=== PATIENT | female | born 1975 | race African-American/Black ===

== ENCOUNTER 2020-01-24 11:47 | Outpatient (CLI) | payer OTHER, SELFPAY ==
--- NOTE | ~2020-01-24 | XR_ITS ---
EXAMINATION: XR knee LT 3V DATE: 01/24/2020 12:21 INDICATION: Left knee pain. TECHNIQUE: 3 views of left knee were obtained. COMPARISON: None. FINDINGS: Bone alignment is normal. No fracture. There is mild osteoarthritis of medial and patellofe moral compartments. No knee joint effusion. IMPRESSION: 1. Mild left knee osteoarthritis. Reviewed, dictated and finalized at location B.
--- NOTE | ~2020-01-24 | XR_ITS ---
EXAMINATION: XR knee RT 3V DATE: 01/24/2020 12:21 INDICATION: Chronic right knee pain. TECHNIQUE: 3 views of right knee were obtained. COMPARISON: None. FINDINGS: Bone alignment is normal. No fracture. There is mild osteoarthritis of medial and patellofe moral compartments. No knee joint effusion. IMPRESSION: 1. Mild right knee osteoarthritis. Reviewed, dictated and finalized at location B.
== END 2020-01-24 11:48 | disposition home or self-care (01) ==
PROVIDERS: PCP Physician Assistant; Visit Provider Physician Assistant
DX: M17.0 Bilateral primary osteoarthritis of knee (principal)
CPT/HCPCS: 73562

== ENCOUNTER 2020-02-05 16:06 | Outpatient (CLI) | payer OTHER, SELFPAY ==
--- NOTE | ~2020-02-05 | MM_ITS ---
EXAMINATION: MM screening [facility] w [facility]lyson HISTORY: Screening TECHNIQUE: Craniocaudal and mediolateral oblique 3-D tomosynthesis images were obtained and synthetic 2-D images were generated. CAD analysis was submitted and interpreted. COMPARISON: Comparison to multiple prior studies sequentially, with oldest reviewed study dated 09/09. BREAST PARENCHYMAL COMPOSITION: The breasts are heterogeneously dense, which may obscure small masses . FINDINGS: There is no evidence of suspicious mass, calcification, or architectural distortion to sugg est malignancy in either breast. There has been no suspicious interval change. IMPRESSION: 1. No mammographic evidence of malignancy. 2. Recommend routine screening mammography in one year. BI-RADS Category 1: Negative Reviewed, dictated and finalized at location A.
== END 2020-02-05 16:07 | disposition home or self-care (01) ==
LOC: ANHIMG 16:11
PROVIDERS: PCP Physician Assistant; Visit Provider Obstetrics & Gynecology
DX: Z12.31 Encounter for screening mammogram for malignant neoplasm of breast (principal)
CPT/HCPCS: 77063; 77067

== ENCOUNTER → 2020-03-14 08:15 | Outpatient (CLI) | payer OTHER, SELFPAY ==
--- NOTE | ~2020-03-14 | MR_ITS ---
EXAMINATION: MR knee LT wo con DATE: 03/14/2020 09:10 INDICATION: Internal derangement of the left knee with generalized left knee pain. TECHNIQUE: Magnetic resonance imaging (MRI) of the left knee was performed without intravenous contra st. Sequences included coronal PD-weighted FSE, coronal PD-weighted FS FSE, sagittal T2-weighted FSE , sagittal PD-weighted FS FSE and axial PD weighted fat saturated FSE. COMPARISON: Left knee radiographs dated 01/24/2020 FINDINGS: Medial compartment: Medial meniscus is normal. Partial-thickness chondral fissure without degenerative subchondral change s at the anterior weightbearing medial femoral condyle. Lateral compartment: Lateral meniscus is normal. Small region of partial-thickness chondral fissuring without degenerative subchondral changes at the posterior lateral tibial plateau. Patellofemoral compartment: Deep chondral fissure with underlying subarticular edema at the medial aspect of the lateral patellar facet. Ligaments and tendons: Anterior and posterior cruciate ligaments are normal. The medial collateral ligament and fibular chris ateral ligament complex are normal. The extensor mechanism is normal. The visualized medial and later al hamstring tendons as well as the iliotibial band are normal. Fluid: Physiologic amount of fluid in the joint space. No loose osteochondral bodies identified. Very small Hamilton's cyst. Osseous/other: Normal marrow signal. No fracture or pathologic marrow replacing process. IMPRESSION: 1. Mild tricompartmental osteoarthritis with small region of high-grade chondromalacia at the patella and small regions of moderate grade chondromalacia with partial-thickness chondral fissuring at the medial femoral condyle and lateral tibial plateau. Reviewed, dictated and finalized at location A. IMPRESSION: 1. Mild tricompartmental osteoarthritis with small region of high-grade chondro malacia at the patella and small regions of moderate grade chondromalacia with partial-thickness chondral fissuring at the medial femoral condyle and lateral tibial plateau.
== END ==
PROVIDERS: PCP Physician Assistant; Visit Provider Orthopaedic Surgery
DX: M23.92 Unspecified internal derangement of left knee (principal); M17.12 Unilateral primary osteoarthritis, left knee; M94.262 Chondromalacia, left knee
CPT/HCPCS: 73721

== ENCOUNTER → 2020-03-27 14:46 | Outpatient (CLI) | payer OTHER, SELFPAY ==
--- NOTE | ~2020-03-27 | XR_ITS ---
EXAMINATION: XR finger 4th LT min 2V DATE: 03/27/2020 15:27 INDICATION: Pain at the left fourth digit TECHNIQUE: Dorsal palmar, lateral and 2 oblique views of the left fourth digit were obtained COMPARISON: None FINDINGS: Alignment is normal. No fracture. Joint spaces are normal. No erosions to suggest an inflammatory art hritis. Soft tissues are unremarkable. IMPRESSION: 1. Negative left fourth digit radiographs. Reviewed, dictated and finalized at location B.
--- NOTE | ~2020-03-27 | XR_ITS ---
EXAMINATION: XR hand RT min 3V DATE: 03/27/2020 15:27 INDICATION: Right hand pain TECHNIQUE: Posteroanterior, oblique and lateral views of the right hand were obtained. COMPARISON: None. FINDINGS: Alignment is normal. No fracture. Joint spaces are normal. No erosions. Soft tissues are unremarkable . IMPRESSION: 1. Negative right hand radiographs. Reviewed, dictated and finalized at location B.
== END ==
PROVIDERS: PCP Physician Assistant; Visit Provider Physician Assistant
DX: M79.641 Pain in right hand (principal); M79.645 Pain in left finger(s)
CPT/HCPCS: 73130; 73140

== ENCOUNTER → 2020-04-20 13:58 | Outpatient (CLI) | payer OTHER, SELFPAY ==
--- NOTE | ~2020-04-20 | US_ITS ---
US transvaginal DATE: 04/20/2020 14:31 INDICATION: Abnormal uterine bleeding, pelvic pain TECHNIQUE: Real-time imaging via transvaginal approach COMPARISON: 04/07/2019 CT abdomen pelvis FINDINGS: The uterus measures 8.4 cm height, 3.7 cm AP and 4.0 cm transverse dimension. The central e ndometrial echo measures 8 mm. Right ovary measures 1.9 x 1.1 x 2.2 cm, with vascular flow. Left ovary measures 2.2 x 1.2 x 1.8 cm, with vascular flow. No pelvic mass or abnormal pelvic fluid collection is detected. IMPRESSION: No significant abnormality Reviewed, dictated and finalized at Location A. Reviewed, dictated and finalized at location A. 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
== END ==
PROVIDERS: Visit Provider Obstetrics & Gynecology
DX: N93.9 Abnormal uterine and vaginal bleeding, unspecified (principal)
CPT/HCPCS: 76830

== ENCOUNTER → 2020-08-26 13:56 | Outpatient (CLI) | payer OTHER, SELFPAY ==
--- NOTE | ~2020-08-26 | US_ITS ---
US pelvic complete DATE: 08/26/2020 14:19 INDICATION: Abnormal uterine bleeding for a couple of months TECHNIQUE: Real-time imaging via transabdominal and transvaginal approaches COMPARISON: 04/20/2020 transvaginal pelvic ultrasound FINDINGS: The uterus measures 8.5 cm height, 3.5 cm AP and 4.7 cm transverse dimension. The central and echo measures approximately 5.6 mm AP dimension. No ovarian mass lesion or abnormal pelvic mass lesion or abnormal pelvic fluid collection is detected . IMPRESSION: No significant abnormality Reviewed, dictated and finalized at Location A. Reviewed, dictated and finalized at location A. IMPRESSION: No significant abnormality
== END ==
PROVIDERS: Visit Provider Nurse Practitioner
DX: N93.8 Other specified abnormal uterine and vaginal bleeding (principal)
CPT/HCPCS: 76856

== ENCOUNTER → 2020-11-27 04:36 | Outpatient (CLI) | payer OTHER, SELFPAY ==
[2020-11-27 11:40] LABS: Influenza Control Positive
[2020-11-27 18:47] LABS: SARS-CoV-2 RNA PCR Negative
== END ==
PROVIDERS: PCP Physician Assistant; Visit Provider Physician Assistant
DX: R68.89 Other general symptoms and signs (principal); Z20.822 Contact with and (suspected) exposure to COVID-19
CPT/HCPCS: 87804; C9803; U0003; U0005

== ENCOUNTER → 2021-03-16 10:31 | Outpatient (CLI) | payer OTHER, SELFPAY ==
--- NOTE | ~2021-03-16 | MM_ITS ---
EXAMINATION: MM screening [facility] BI w alyson HISTORY: Screening mammogram TECHNIQUE: Craniocaudal and mediolateral oblique 3-D tomosynthesis images were obtained and synthetic 2-D images were generated. CAD analysis was submitted and interpreted. COMPARISON: 02/05/2020, 10/17/2018, 09/20/2017 BREAST PARENCHYMAL COMPOSITION: The breasts are heterogeneously dense, which may obscure small masses . FINDINGS: There is no evidence of suspicious mass, calcification, or architectural distortion to sugg est malignancy in either breast. There has been no suspicious interval change. IMPRESSION: 1. No mammographic evidence of malignancy. 2. Recommend routine screening mammography in one year. BI-RADS Category 1: Negative Reviewed, dictated and finalized at location A.
== END ==
PROVIDERS: Visit Provider Obstetrics & Gynecology
DX: Z12.31 Encounter for screening mammogram for malignant neoplasm of breast (principal)
CPT/HCPCS: 77063; 77067

== ENCOUNTER → 2021-03-25 12:01 | Outpatient (CLI) | payer OTHER, SELFPAY ==
--- NOTE | ~2021-03-25 | US_ITS ---
EXAMINATION: US transvaginal DATE: 03/25/2021 12:50 INDICATION: Pelvic and perineal pain. TECHNIQUE: Multiple transvaginal sonographic images of the pelvis were obtained. COMPARISON: None. FINDINGS: The uterus measures 7.1 x 3.8 x 4.4 cm. There is no free fluid in the pelvis. The endometrial complex measures 4 mm in thickness. There is a 9 mm calcified subserosal fibroid. The right ovary measures 1 .9 x 1.3 x 1.4 cm. The left ovary measures 2.8 x 1.8 x 2.3 cm. There is normal vascular flow in the o varies. IMPRESSION: 1. Small uterine fibroid. Reviewed, dictated and finalized at location A. IMPRESSION: 1. Small uterine fibroid.
== END ==
PROVIDERS: PCP Physician Assistant; Visit Provider Nurse Practitioner
DX: R10.2 Pelvic and perineal pain (principal); D25.9 Leiomyoma of uterus, unspecified
CPT/HCPCS: 76830

== ENCOUNTER → 2021-10-05 01:58 | Outpatient (CLI) | payer OTHER, SELFPAY ==
[2021-10-05 13:57] LABS: Influenza A QL RT-PCR Negative (Negative); Influenza B QL RT-PCR Negative (Negative); SARS-CoV-2 RNA PCR Positive
== END ==
PROVIDERS: PCP Internal Medicine; Visit Provider Physician Assistant
DX: Z20.822 Contact with and (suspected) exposure to COVID-19 (principal); R68.89 Other general symptoms and signs
CPT/HCPCS: 87502; C9803; U0003; U0005

== ENCOUNTER → 2022-03-23 11:26 | Outpatient (CLI) | payer OTHER, SELFPAY ==
--- NOTE | ~2022-03-23 | MM_ITS ---
EXAMINATION: MM screening [facility] BI w alyson HISTORY: Screening TECHNIQUE: Craniocaudal and mediolateral oblique 3-D tomosynthesis images were obtained and synthetic 2-D images were generated. CAD analysis was submitted and interpreted. COMPARISON: Comparison to multiple prior studies sequentially, with oldest reviewed study dated 09/09. BREAST PARENCHYMAL COMPOSITION: The breasts are heterogeneously dense, which may obscure small masses FINDINGS: There is no evidence of suspicious mass, calcification, or architectural distortion to sugg est malignancy in either breast. There has been no suspicious interval change. IMPRESSION: 1. No mammographic evidence of malignancy. 2. Recommend routine screening mammography in one year. BI-RADS Category 1: Negative Reviewed, dictated and finalized at location A.
== END ==
PROVIDERS: PCP Physician Assistant; Visit Provider Obstetrics & Gynecology Gynecology
DX: Z12.31 Encounter for screening mammogram for malignant neoplasm of breast (principal)
CPT/HCPCS: 77063; 77067

== ENCOUNTER 2022-03-30 14:47 | Outpatient (CLI) | payer OTHER, SELFPAY ==
--- NOTE | ~2022-03-30 | US_ITS ---
EXAMINATION: US venous doppler [facility] DATE: 03/30/2022 15:27 INDICATION: Left lower limb pain and swelling TECHNIQUE: Up scale images without and with compression and Doppler images of the left lower extrem ity veins were obtained. COMPARISON: None FINDINGS: The left common femoral vein, profunda femoral vein, femoral vein, popliteal vein, peroneal trunk, posterior tibial veins, and greater saphenous vein are patent. IMPRESSION: 1. Patent left lower extremity veins. No evidence of deep venous thrombosis. Reviewed, dictated and finalized at location A.
== END 2022-03-30 14:48 | disposition home or self-care (01) ==
LOC: ANHIMG 14:54
PROVIDERS: PCP Physician Assistant; Visit Provider Podiatrist Foot & Ankle Surgery
DX: M79.89 Other specified soft tissue disorders (principal)
CPT/HCPCS: 93971

== ENCOUNTER 2022-04-29 11:28 | Outpatient (CLI) | payer OTHER, SELFPAY ==
[2022-04-29 11:47] LABS: Appearance Urine Clear (Clear); Bilirubin Urine Negative (Negative); Blood Urine Negative (Negative); Color Urine Yellow (Yellow); Glucose Urine UA Negative (Negative); Ketones Urine Negative (Negative); Leukocyte Esterase Ur Trace LEU/UL (NEGATIVE); Nitrate Urine Negative (Negative); Protein Urine Negative (Negative); Urobilinogen Urine 0.2 mg/dL (<2.0); pH Urine 6.5 (5.0-9.0)
[2022-04-29 11:52] LABS: Add Urine Microscopic? YES; Bacteria Urine Trace /hpf; Mucus Urine Rare /lpf; RBC Urine 0-2 /hpf (0-2); Squamous Epithelial Cell Urine Occasional /hpf (Few); WBC Urine 0-3 /hpf (0-3)
== END 2022-04-29 11:29 | disposition home or self-care (01) ==
LOC: ANHLAB 11:29
PROVIDERS: PCP Physician Assistant; Visit Provider Physician Assistant
DX: R30.0 Dysuria (principal)
CPT/HCPCS: 81001; 87086

== ENCOUNTER 2022-07-18 01:23 | Day surgery (SDC) | payer OTHER, SELFPAY ==
[2022-06-30 11:42] VITALS: BMI 30.5
[2022-07-18 07:40] VITALS: BP 128/75; PULSE 87; RESP 16; TEMP 36.1; O2SAT 100; BMI 31.0
--- NOTE | 2022-07-18 08:13 | WPDANESEPPF ---
Anes - Initial Pre Proc Eval Procedure: Operation Date: 07/18/22 09:00 Proposed Procedures p Screening Colonoscopy - Abel Lundy MD Date/Time: 07/18/22 08:13 Surgeon: Abel Lundy MD Pre Op Diagnosis: neoplasm screening Patient Data Age: 47 Gender: F Height: 1.6 m Weight: 79.4 kg Last Vital Signs Temp 36.1 C L 07/18/22 07:40 Pulse 87 07/18/22 07:40 Resp 16 07/18/22 07:40 BP 128/75 07/18/22 07:40 Pulse Ox 100 07/18/22 07:40 O2 Del Method Room Air 07/18/22 07:40 Allergies Allergy/AdvReac Type Severity Reaction Status Date / Time No Known Allergies Allergy Verified 07/18/22 07:51 Home Medications Medication Instructions Recorded Confirmed Type cholecalciferol (vitamin D3) 125 5,000 unit PO WEEKLY 04/15/19 07/18/22 History mcg (5,000 unit) capsule hhtuqtmm-kbl-xdls-FA-Ca carb-vit K 1 tablet PO DAILY 04/15/19 07/18/22 History 18 mg iron-400 mcg-500 mg tablet (One-A-Day Womens Formula) norgestimate 0.25 mg-ethinyl 1 tablet PO DAILY 03/17/21 07/18/22 History estradiol 35 mcg tablet (Aby) diclofenac sodium 1 % topical gel 4 g topical QID 06/30/22 07/18/22 History spironolactone 100 mg tablet 100 mg PO BID 06/30/22 07/18/22 History Patient hx anesthesia problems: none Family hx anesthesia problems: none Results Review: All pre-operative results and documents have been reviewed as part of the pre-operative evaluation. [facility] Past Medical History Medical History Clostridium difficile colitis (04/07/19) Endometriosis History of vitamin D deficiency Multiple allergies Osteoarthritis Osteoarthritis of left knee Trochanteric bursitis of both hips Surgical History Surgical History History of hysteroscopy History of laparoscopy History of toe surgery Family History Family History Sibling Patient's brother is in good health Mother Hypertension Family history of arthritis Other Cerebrovascular accident Social History Social History Smoking status: Never smoker Second hand tobacco smoke exposure: No Alcohol intake: current Alcohol use details: rarely Substance use: never Substance use type: does not use Lack of Transportation: No Lack of Food: Never True Current Housing: I Have Housing Concerned About Future Housing: No Difficulty Paying Gas/Electric Bills: No Difficulty Paying for Meds: No Currently Unemployed: No Education: Associate Degree Difficulty w/ Childcare or Family Care: No Living arrangements: with family Spiritual care concerns: No Anes - Eval Final PreProcedure Day of Procedure 07/18/22 08:13 Patient weight: obese Heart: regular rate and rhythm Lungs: clear to auscultation Airway: Mallampati scale class II Neurological: alert and oriented Last oral intake: >/= 8 hours ASA classification: II Emergent: no Anesthetic plan: proceed Anesthesia type and monitoring: general GIVS and standard monitoring Results Review: All pre-operative results and documents have been reviewed as part of the pre-operative evaluation. Informed Consent: The patient's anesthetic plan and its attendant risks and benefits were discussed with the patient/family/POA. Questions were solicited and answers provided to the satisfaction of the patient/family/POA.
[2022-07-18] MEDS: LACTATED RINGERS 1,000 ML 150 ML IV CONT (08:22)
--- NOTE | 2022-07-18 08:34 | PM.HPGS ---
History of Present Illness History of Present Illness Consent: Risks, benefits, and alternatives have been discussed and questions answered. Patient agrees to proceed with procedure. Chief complaint: neoplasm screening Narrative: Rosangela Matthews is a 47 year old female here for first screening colonoscopy Review of Systems Constitutional: Constitutional: Denies headache(s) and Denies weakness Eyes: Eyes: Denies blurry vision ENT: Reports Normal hearing present, Denies headache(s) and Denies neck pain Cardiovascular: Cardiovascular: Denies chest pain and Denies dyspnea Respiratory: Respiratory: Denies dyspnea Gastrointestinal: Gastrointestinal: Reports no additional gastrointestinal complaints Genitourinary: Genitourinary: Denies dysuria Musculoskeletal: Musculoskeletal: Denies neck pain Integumentary/Breasts: Skin/Breast: Denies dry skin Neurologic: Reports Normal hearing present, Denies headache(s) and Denies weakness Psychiatric: Psychiatric: Denies anxiety Endocrine: Endocrine: Denies change in body appearance Hematologic/Lymphatic: Hematologic/Lymphatic: Denies easy bleeding Allergic/Immunologic: Allergic/Immunologic: Denies urticaria PMF Past Medical History Medical History (Updated 07/18/22 @ 08:35 by Abel Lundy MD) Clostridium difficile colitis (04/07/19) Colon cancer screening Endometriosis History of vitamin D deficiency Multiple allergies Osteoarthritis Osteoarthritis of left knee Trochanteric bursitis of both hips Surgical History Surgical History History of hysteroscopy History of laparoscopy History of toe surgery Family History Family History Sibling Patient's brother is in good health Mother Hypertension Family history of arthritis Other Cerebrovascular accident Social History Social History Smoking status: Never smoker Second hand tobacco smoke exposure: No Alcohol intake: current Alcohol use details: rarely Substance use: never Substance use type: does not use Lack of Transportation: No Lack of Food: Never True Current Housing: I Have Housing Concerned About Future Housing: No Difficulty Paying Gas/Electric Bills: No Difficulty Paying for Meds: No Currently Unemployed: No Education: Associate Degree Difficulty w/ Childcare or Family Care: No Living arrangements: with family Spiritual care concerns: No Meds Home Medications and Allergies Home Medications Medication Instructions Recorded Confirmed Type cholecalciferol (vitamin D3) 125 5,000 unit PO WEEKLY 04/15/19 07/18/22 History mcg (5,000 unit) capsule gvqwutja-wot-fovw-FA-Ca carb-vit K 1 tablet PO DAILY 04/15/19 07/18/22 History 18 mg iron-400 mcg-500 mg tablet (One-A-Day Womens Formula) norgestimate 0.25 mg-ethinyl 1 tablet PO DAILY 03/17/21 07/18/22 History estradiol 35 mcg tablet (Aby) diclofenac sodium 1 % topical gel 4 g topical QID 06/30/22 07/18/22 History spironolactone 100 mg tablet 100 mg PO BID 06/30/22 07/18/22 History Allergies Allergy/AdvReac Type Severity Reaction Status Date / Time No Known Allergies Allergy Verified 07/18/22 07:51 Vital Signs Vital Signs - 24 hr 07/18/22 07:40 Temperature 96.9 F L Pulse Rate 87 Respiratory Rate 16 Blood Pressure 128/75 Pulse Oximetry 100 Oxygen Delivery Room Air Exam Const: General: comfortable and no acute distress HENMT: Face/Nose/Sinus: Normal nares present Eyes: General: appearance normal, both eyes and all related structures Neck: Neck: no JVD Resp: Auscultation: clear to auscultation bilaterally Cardio: Rate: regular rate Rhythm: regular rhythm GI: Inspection: non-distended GI Palp: Yes Soft to palpation Skin: General skin exam: normal color Neuro: General: gait normal
[2022-07-18 08:57] VITALS: BP 96/57; PULSE 81; RESP 16; O2SAT 99
[2022-07-18 09:07] VITALS: BP 105/54; PULSE 78; RESP 22; O2SAT 99
[2022-07-18 09:17] VITALS: BP 107/53; PULSE 74; RESP 17; O2SAT 99
== END 2022-07-18 09:30 | disposition home or self-care (01) ==
PROVIDERS: PCP Physician Assistant; Visit Provider Internal Medicine Gastroenterology
PROC: 0DJD8ZZ Inspection of Lower Intestinal Tract, Via Natural or Artificial Opening Endoscopic (ICD-10-PCS; CPT 45378; principal; 2022-07-18 09:00)
DX: Z12.11 Encounter for screening for malignant neoplasm of colon (principal); K63.5 Polyp of colon; K63.89 Other specified diseases of intestine; E66.9 Obesity, unspecified; Z68.31 Body mass index [BMI] 31.0-31.9, adult
CPT/HCPCS: 45385; 88305; J2704; J7120

== ENCOUNTER 2023-05-18 17:03 | Outpatient (CLI) | payer OTHER, SELFPAY ==
[2023-05-18 18:52] LABS: Strep Group A RT-PCR NOT DETECTED (Negative)
== END 2023-05-18 17:04 | disposition home or self-care (01) ==
LOC: ANHLAB 17:04
PROVIDERS: PCP Physician Assistant; Visit Provider Physician Assistant
DX: J02.9 Acute pharyngitis, unspecified (principal)
CPT/HCPCS: 87651; 87880

== ENCOUNTER 2023-06-07 16:48 | Outpatient (CLI) | payer OTHER, SELFPAY ==
[2023-06-07 17:18] LABS: Appearance Urine Clear (Clear); Bilirubin Urine Negative (Negative); Blood Urine Negative (Negative); Color Urine Yellow (Yellow); Glucose Urine UA Negative (Negative); Ketones Urine Negative (Negative); Leukocyte Esterase Ur Negative LEU/UL (NEGATIVE); Nitrate Urine Negative (Negative); Protein Urine Negative (Negative); Specific Grav Ur 1.014 (1.001-1.035); Urobilinogen Urine 0.2 mg/dL (<2.0)
[2023-06-07 17:21] LABS: Add Urine Microscopic? NO
== END 2023-06-07 16:49 | disposition home or self-care (01) ==
LOC: ANHLAB 16:50
PROVIDERS: PCP Physician Assistant; Visit Provider Physician Assistant
DX: R30.0 Dysuria (principal)
CPT/HCPCS: 81003; 87086; 87088

== ENCOUNTER → 2023-06-29 14:09 | Outpatient (CLI) | payer OTHER, SELFPAY ==
--- NOTE | ~2023-06-29 | MM_ITS ---
EXAMINATION: MM screening [facility] BI w alyson HISTORY: Screening TECHNIQUE: Craniocaudal and mediolateral oblique 3-D tomosynthesis images were obtained and synthetic 2-D images were generated. CAD analysis was submitted and interpreted. COMPARISON: Comparison to multiple prior studies sequentially, with oldest reviewed study dated 09/09. BREAST PARENCHYMAL COMPOSITION: The breasts are heterogeneously dense, which may obscure small masses FINDINGS: There is new focal asymmetry centrally in the right breast on CC view, posterior third. The re is also a new asymmetry laterally in the left breast posteriorly on CC view. There are no suspicio us calcifications or architectural distortion. IMPRESSION: 1. New bilateral focal asymmetries. 2. Additional mammographic views and possible breast ultrasound are recommended. BI-RADS Category 0: Incomplete: Needs additional imaging evaluation. Reviewed, dictated and finalized at location A. COVER ESTIMATOR IMPRESSION: 1. New bilateral focal asymmetries. 2. Additional mammographic views and possible breast ultrasound are recommended . BI-RADS Category 0: Incomplete: Needs additional imaging evaluation.
== END ==
PROVIDERS: PCP Obstetrics & Gynecology Gynecology; Visit Provider Obstetrics & Gynecology Gynecology
DX: Z12.31 Encounter for screening mammogram for malignant neoplasm of breast (principal); R92.8 Other abnormal and inconclusive findings on diagnostic imaging of breast
CPT/HCPCS: 77063; 77067

== ENCOUNTER → 2023-07-28 09:32 | Outpatient (CLI) | payer OTHER, SELFPAY ==
--- NOTE | ~2023-07-28 | MMUS_ITS ---
EXAMINATION: MM diagnostic [facility] BI w alyson, US breast LT limited HISTORY: Bilateral breast asymmetries on screening mammogram TECHNIQUE: Additional 3-D tomosynthesis images of the breasts were performed and synthetic 2-D images were generated. CAD analysis was submitted and interpreted. High resolution limited left breast ultr asound was performed. COMPARISON: 06/29/2023, 03/23/2022, 04/16/2021, 02/05/2020 FINDINGS: MAMMOGRAPHIC FINDINGS: There is a return to baseline fibroglandular appearance with spot compression of the breasts in the a reas questioned on screening mammogram. No suspicious mass, calcification, or architectural distortio n are identified. ULTRASOUND: Suspicious mass is identified in the area of the mammographic finding in question in the left breast. There are cysts measuring up to 6 mm at the 2:00 and 3:00 locations. IMPRESSION: 1. No mammographic or sonographic evidence of malignancy. 2. Recommend routine screening mammography in one year. BI-RADS Category 2: Benign finding(s). Reviewed, dictated and finalized at location A. INVESTIGATOR IMPRESSION: 1. No mammographic or sonographic evidence of malignancy. 2. Recommend routine screening mammography in one year. BI-RADS Category 2: Benign finding(s).
== END ==
PROVIDERS: PCP Physician Assistant; Visit Provider Obstetrics & Gynecology Gynecology
DX: R92.8 Other abnormal and inconclusive findings on diagnostic imaging of breast (principal)
CPT/HCPCS: 76642; 77062; 77066; G0279

== ENCOUNTER 2023-09-11 13:17 | Emergency (ER) | payer OTHER, SELFPAY ==
[2023-09-11 13:49] VITALS: BP 138/83; PULSE 79; RESP 16; TEMP 36.4; O2SAT 100
[2023-09-11 16:52] VITALS: BP 131/87; PULSE 82; RESP 14; O2SAT 100
[2023-09-11 17:18] LABS: Appearance Urine Clear (Clear); Bacteria Urine None Seen /hpf; Bilirubin Urine Negative (Negative); Blood Urine Negative (Negative); Color Urine Yellow (Yellow); Glucose Urine UA Negative (Negative); Ketones Urine Negative (Negative); Leukocyte Esterase Ur Trace LEU/UL (Negative); Nitrate Urine Negative (Negative); Non Pathogenic Casts 0-2; Protein Urine Negative (Negative); RBC Urine 0-2 /hpf (0-2); Specific Grav Ur 1.017 (1.001-1.035); Squamous Epithelial Cell Urine None Seen /hpf (Few); WBC Urine 0-5 /hpf (0-3); pH Urine 7.5 (5.0-9.0)
--- NOTE | 2023-09-11 17:25 | ED.GENADULT ---
HPI - General Adult General Chief complaint: Back Pain/Injury Stated complaint: left back pain for 3 days Time Seen by Provider: 09/11/23 16:55 Source: patient Mode of arrival: ambulatory Limitations: no limitations History of Present Illness HPI narrative: This is a 48 year old female who presents to the ED with chief complaint of left mid to lower back pain beginning 2-3 days ago. Patient rates pain 5-6 at 10. Denies any radiation pain. Denies any specific injury or trauma. 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 She states that she has a known kidney stone the left side but has never had troubles with this. Denies fevers, chills, nausea, vomiting, abdominal pain, troubles with urination, saddle anesthesia, bowel or bladder dysfunction. Related Data Home Medications Medication Instructions Recorded Confirmed cholecalciferol (vitamin D3) 125 5,000 unit PO WEEKLY 04/15/19 03/23/23 mcg (5,000 unit) capsule czdvrcvz-iew-ojqg-FA-Ca carb-vit K 1 tablet PO DAILY 04/15/19 03/23/23 18 mg iron-400 mcg-500 mg tablet (One-A-Day Womens Formula) norgestimate 0.25 mg-ethinyl 1 tablet PO DAILY 03/17/21 03/23/23 estradiol 35 mcg tablet (Aby) diclofenac sodium 1 % topical gel 4 g topical QID 06/30/22 03/23/23 spironolactone 100 mg tablet 100 mg PO BID 06/30/22 03/23/23 Allergies Allergy/AdvReac Type Severity Reaction Status Date / Time No Known Allergies Allergy Verified 09/11/23 13:52 Review of Systems Review of Systems: All systems as dictated in HPI [facility] Past Medical History Medical History Clostridium difficile colitis (04/07/19) Colon cancer screening Endometriosis History of vitamin D deficiency Multiple allergies Osteoarthritis Osteoarthritis of left knee Trochanteric bursitis of both hips Surgical History Surgical History History of hysteroscopy History of laparoscopy History of toe surgery Family History Family History Sibling Patient's brother is in good health Mother Hypertension Family history of arthritis Other Cerebrovascular accident Social History Social History Smoking status: Never smoker Second hand tobacco smoke exposure: No Alcohol intake: current Alcohol use details: rarely Substance use: never Substance use type: does not use Lack of Transportation: No Lack of Food: Never True Current Housing: I Have Housing Concerned About Future Housing: No Difficulty Paying Gas/Electric Bills: No Difficulty Paying for Meds: No Currently Unemployed: No Education: Associate Degree Difficulty w/ Childcare or Family Care: No Living arrangements: with family Spiritual care concerns: No Exam Narrative: GENERAL: Well-appearing, well-nourished, and in no acute distress. HEAD: Normocephalic, atraumatic. EYES: PERRLA and EOMI. ENT: Nares clear, no rhinorrhea or epistaxis. Mucous membranes moist. Oropharynx without tonsillar hypertrophy exudate or other lesions. NECK: Supple. No adenopathy or masses. CHEST: No respiratory distress. Clear to auscultation. No wheezes rales or rhonchi HEART: Regular rate and rhythm. No murmur heard. Normal peripheral pulses. ABDOMEN: Soft, nontender, nondistended, normal active bowel sounds. MSK: Mild left thoracic and lumbar paraspinal tenderness. No midline spinal tenderness. Ambulatory without difficulty. Normal range of motion. No edema. SKIN: Warm, dry, no rash. NEURO: Alert and oriented x3. No focal deficits. 5/5 strength and sensation in the upper and lower extremities. PSYCH: Normal mood and affect. Course Vital Signs Vital signs: Vital Signs Temperature 97.6 F 09/11/23 13:49 Pulse Rate 79 09/11/23 13:49 R
[2023-09-11 17:30] LABS: Add Urine Microscopic? YES
== END 2023-09-11 17:38 | disposition home or self-care (01) ==
PROVIDERS: Family Medicine; Emergency Provider Physician Assistant; PCP Physician Assistant
DX: S39.012A Strain of muscle, fascia and tendon of lower back, initial encounter (principal); E55.9 Vitamin D deficiency, unspecified; N80.9 Endometriosis, unspecified; M17.12 Unilateral primary osteoarthritis, left knee; X50.0XXA Overexertion from strenuous movement or load, initial encounter
CPT/HCPCS: 81001; 99283

== ENCOUNTER 2024-01-23 14:38 | Emergency (ER) | payer OTHER, SELFPAY ==
[2024-01-23 14:49] VITALS: BP 117/79; PULSE 114; RESP 16; TEMP 37.8; O2SAT 98
--- NOTE | 2024-01-23 14:49 | ED.GENADULT ---
HPI - General Adult General Chief complaint: Upper Respiratory Infection Stated complaint: Fever/Headache Time Seen by Provider: 01/23/24 14:49 Source: patient, RN notes reviewed and old records reviewed Mode of arrival: ambulatory Limitations: no limitations History of Present Illness HPI narrative: 49-year-old female to [facility] for complaint of fever, sore throat, chills, body aches for 1 day. Patient reports temp up to 102?. Patient has been attempting to treat at home with gqys-ief-fimvzdv medications, States that she has not taken any kfgc-izz-gmfixxx medications since last night due to fatigue. Patient states that spouse recently return from conference sick and that she caught her illness from him. Patient reports that his bowels tested negative for COVID. Patient denies that she is experiencing shortness of breath, chest pain, difficulty swallowing, ear pain, headache, dizziness, weakness, nausea, vomiting, diarrhea. Patient able to tolerate fluids by mouth. Patient febrile and tachycardic in triage. Respirations even and nonlabored. patient appears tired and uncomfortable. Patient in no acute distress. Related Data Home Medications Medication Instructions Recorded Confirmed cholecalciferol (vitamin D3) 125 5,000 unit PO WEEKLY 04/15/19 01/23/24 mcg (5,000 unit) capsule ffkzdjyb-nwh-xxlc-FA-Ca carb-vit K 1 tablet PO DAILY 04/15/19 01/23/24 18 mg iron-400 mcg-500 mg tablet (One-A-Day Womens Formula) norgestimate 0.25 mg-ethinyl 1 tablet PO DAILY 03/17/21 01/23/24 estradiol 35 mcg tablet (Aby) spironolactone 100 mg tablet 100 mg PO BID 01/23/24 01/23/24 Allergies Allergy/AdvReac Type Severity Reaction Status Date / Time No Known Allergies Allergy Verified 01/23/24 14:48 Review of Systems Review of Systems: All systems reviewed & are unremarkable except as noted in HPI and below Constitutional: Constitutional: Reports as per HPI, Reports body ache(s), Reports chills, Reports fatigue and Reports fever(s) Eyes: Eyes: Reports no additional eye complaints ENT: Reports as per HPI and Reports sore throat Cardiovascular: Cardiovascular: Reports no additional cardiovascular complaints, Denies chest pain and Denies dyspnea Respiratory: Respiratory: Reports no additional respiratory complaints, Denies cough and Denies dyspnea Musculoskeletal: Musculoskeletal: Reports no additional musculoskeletal complaints Neurologic: Reports system reviewed and no additional complaints, except as documented Psychiatric: Psychiatric: Reports no additional psychiatric complaints [facility] Past Medical History Medical History Clostridium difficile colitis (04/07/19) Colon cancer screening Endometriosis History of vitamin D deficiency Multiple allergies Osteoarthritis Osteoarthritis of left knee Trochanteric bursitis of both hips Surgical History Surgical History History of hysteroscopy History of laparoscopy History of toe surgery Family History Family History Sibling Patient's brother is in good health Mother Hypertension Family history of arthritis Other Cerebrovascular accident Social History Social History Smoking status: Never smoker Second hand tobacco smoke exposure: No Alcohol intake: current Alcohol use details: rarely Substance use: never Substance use type: does not use Lack of Transportation: No Lack of Food: Never True Current Housing: I Have Housing Concerned About Future Housing: No Difficulty Paying Gas/Electric Bills: No Difficulty Paying for Meds: No Currently Unemployed: No Education: Associate Degree Difficulty w/ Childcare or Family Care: No Living arrangements: with family Spiritual care concerns
[2024-01-23 14:50] VITALS: BP 117/79; PULSE 114; RESP 16; TEMP 37.8; O2SAT 98
[2024-01-23 19:27] LABS: EDINFLUASCREEN Negative; EDINFLUBSCREEN Negative
== END 2024-01-23 15:43 | disposition home or self-care (01) ==
PROVIDERS: Emergency Provider Nurse Practitioner Family; PCP Physician Assistant
DX: B34.9 Viral infection, unspecified (principal); Z20.822 Contact with and (suspected) exposure to COVID-19; N80.9 Endometriosis, unspecified; M17.12 Unilateral primary osteoarthritis, left knee; E55.9 Vitamin D deficiency, unspecified
CPT/HCPCS: 87426; 87804; 99213; G0463

== ENCOUNTER 2024-03-19 11:14 | Outpatient (CLI) | payer OTHER, SELFPAY ==
--- NOTE | ~2024-03-19 | XR_ITS ---
Left Knee Technique: AP, lateral, and sunrise views were obtained. Clinical History: Pain Findings: No fracture or dislocation is seen. Osseous alignment is anatomic. There is mild medial jose alejandro nt line spurring. Soft tissues are unremarkable. No joint effusion is seen. Impression: Mild degenerative spurring. Reviewed, dictated and finalized at [facility]. Impression: Mild degenerative spurring.
== END 2024-03-19 11:15 | disposition home or self-care (01) ==
PROVIDERS: PCP Nurse Practitioner; Visit Provider Orthopaedic Surgery
DX: M25.562 Pain in left knee (principal)
CPT/HCPCS: 73564

== ENCOUNTER 2024-04-23 17:10 | Emergency (ER) | payer OTHER, SELFPAY ==
[2024-04-23 17:19] VITALS: BP 122/79; PULSE 89; RESP 16; TEMP 36.5; O2SAT 99
--- NOTE | 2024-04-23 17:43 | ED_ITS ---
HPI - Female Genitourinary General Chief complaint: Urogenital-Female Stated complaint: uti symptoms Time Seen by Provider: 04/23/24 17:44 Source: patient and RN notes reviewed Mode of arrival: ambulatory Limitations: no limitations History of Present Illness HPI Narrative: 49-year-old female presents concern for dysuria, frequency, urgency, suprapubic pressure for couple days. She reports she has been taking azo my drinking cranberry juice. She denies fever, body aches, chills, sweats, nausea, vomiting, abdominal pain, back pain. She reports fatigue MD elicited complaint: UTI Related Data Home Medications Medication Instructions Recorded Confirmed cholecalciferol (vitamin D3) 125 5,000 unit PO WEEKLY 04/15/19 04/02/24 mcg (5,000 unit) capsule ijetesxr-bde-aeqx-FA-Ca carb-vit K 1 tablet PO DAILY 04/15/19 04/02/24 18 mg iron-400 mcg-500 mg tablet (One-A-Day Womens Formula) norgestimate 0.25 mg-ethinyl 1 tablet PO DAILY 03/17/21 04/02/24 estradiol 35 mcg tablet (Aby) Allergies Allergy/AdvReac Type Severity Reaction Status Date / Time No Known Allergies Allergy Verified 04/23/24 17:41 Review of Systems Review of Systems: CONSTITUTIONAL: Denies malaise, chills, sweats, or fever. CARDIOVASCULAR: Denies chest pain, palpitations, or edema. RESPIRATORY: Denies cough or dyspnea. GASTROINTESTINAL: Denies abdominal pain, nausea, vomiting, diarrhea GENITOURINARY: Reports dysuria, frequency, urgency, suprapubic pressure. Denies flank pain or hematuria. SKIN: Denies rash or itching. MUSCULOSKELETAL: Denies back pain or myalgia. All systems reviewed & are unremarkable except as noted in HPI and below PMFSH Past Medical History Medical History Clostridium difficile colitis (04/07/19) Colon cancer screening Endometriosis History of vitamin D deficiency Multiple allergies Osteoarthritis Osteoarthritis of left knee Trochanteric bursitis of both hips Surgical History Surgical History History of hysteroscopy History of laparoscopy History of toe surgery Family History Family History Sibling Patient's brother is in good health Mother Hypertension Family history of arthritis Other Cerebrovascular accident Social History Social History Smoking status: Never smoker Second hand tobacco smoke exposure: No Alcohol intake: current Alcohol use details: rarely Substance use: never Substance use type: does not use Do You Feel Safe in your Home?: Yes Lack of Transportation: No Lack of Food: Never True Current Housing: I Have Housing Concerned About Future Housing: No Difficulty Paying Gas/Electric Bills: No Difficulty Paying for Meds: No Currently Unemployed: No Education: Associate Degree Difficulty w/ Childcare or Family Care: No Living arrangements: with family Spiritual care concerns: No Comments At time of signature, agree with nursing past medical, surgical, social and family history. There is no relevant family history pertinent to the presenting complaint Exam Narrative: GENERAL: Well-appearing, well-nourished, and in no acute distress. HEAD: Normocephalic. EYES: PERRLA, conjunctivae clear. NECK: Supple. No lymphadenopathy CHEST: Clear to auscultation. No respiratory distress. HEART: Regular rate and rhythm. ABDOMEN: Soft, nontender upon palpation, nondistended, normal active bowel sounds, no palpable or pulsatile masses, no guarding. No CVA tenderness SKIN: Warm, dry, no rash. NEURO: Alert and oriented x3. PSYCH: Normal mood and affect Course Course Emergency Course: Patient is aware of diagnosis, understands and agrees to treatment plan. Ant icipatory guidance given. Patient agrees to follow-up as directed and is aware of reasons to seek care at the emergency department. Portions of this record may have been created with voice recognition software Level of Care: Express Care Visit Vital Signs Vital signs: Vital Signs Temperature 97.7 F 04/23/24 17:19 Pulse Rate 89 04/23/24 17:19 Respiratory Rate 16 04/23/24 17:19 Blood Pressure 122/79 04/23/24 17:19 Pulse Oximetry 99 04/23/24 17:19 Temperature 97.7 F 04/23/24 17:19 Pulse Rate 89 04/23/24 17:19 Respiratory Rate 16 04/23/24 17:19 Blood Pressure 122/79 04/23/24 17:19 Pulse Oximetry 99 04/23/24 17:19 Reviewed. MDM - Female Genitourinary MDM Narrative Medical decision making narrative: Exam findings and UA show no acute concerns or changes; patient is non-toxic appearing and is in no distress. Patient is appropriate for outpatient treatment and follow-up. Differential Diagnosis Differential diagnosis: Likely urinary tract infection and cystitis Critical Care Time Critical Care Time Critical Care Time: No Discharge Plan Discharge Clinical Impression: Symptoms of urinary tract infection Patient Disposition: Home, Self-Care Condition: Stable Instructions: Antibiotic Form, Urinary Tract Infection in Women (ED) Additional Instructions: We will send a urine culture to the lab; if the culture identifies an organism that the prescribed antibiotic will not treat, you will receive a phone call from an urgent care staff member and an appropriate antibiotic will be prescribed. -Your symptoms should begin to improve within a day of starting antibiotics. But you should finish all the antibiotic pills you get. Otherwise your infection might come back. -Also recommend: increase water intake. Tylenol/ibuprofen as needed for pain or fever -Follow-up with your primary care provider for urine recheck or seek ER visit if condition worsens with high fever, nausea, vomiting and severe back pain. Prescriptions: New sulfamethoxazole-trimethoprim 800-160 mg tablet 1 tablet PO Q12H 7 Days Qty: 14 0RF No Action norgestimate-ethinyl estradiol [Aby] 0.25-35 mg-mcg tablet 1 tablet PO DAILY One-A-Day Womens Formula 18 mg iron-400 mcg-500 mg tablet 1 tablet PO DAILY cholecalciferol (vitamin D3) 5,000 unit capsule 5,000 unit PO WEEKLY Rx Instructions: on Sundays Follow-up/Referrals: UNKNOWN,DOCTOR [Primary Care Provider] - Time of Disposition: 17:52
[2024-04-23 17:58] LABS: EDUAAPPEAR Clear; EDUABILI Negative (Negative); EDUABLOOD Negative (Negative); EDUACOLOR1 Yellow; EDUAGLUCOSE Negative (Negative); EDUAKETONE Negative (Negative); EDUALEUKO Negative (Negative); EDUANITRATE Negative (Negative); EDUAPROTEIN Negative (Negative); EDUASPGRAVITY 1.015; EDUAUROBILI 0.2
--- NOTE | 2024-04-24 17:55 | PC.NURSE ---
pt called reporting [facility] yesterday and did not receive her escript for bactrim ds. This RN [facility] [address] [facility]rim ds po, take 1 tablet bid for 7 days, #14 tablets, no refills.
== END 2024-04-23 17:56 | disposition home or self-care (01) ==
PROVIDERS: Emergency Provider Nurse Practitioner
DX: R30.0 Dysuria (principal); R35.0 Frequency of micturition; R39.15 Urgency of urination
CPT/HCPCS: 81003; 87086; 99213; G0463

== ENCOUNTER 2024-05-03 17:48 | Emergency (ER) | payer OTHER, SELFPAY ==
--- NOTE | 2024-05-03 17:54 | ED.SKABFB ---
HPI - Skin/Abscess/Foreign Bdy General Chief complaint: Skin/Abscess/Foreign Body Stated complaint: cyst on rt leg Time Seen by Provider: 05/03/24 17:54 Source: patient Mode of arrival: ambulatory Limitations: no limitations History of Present Illness HPI narrative: Rosangela is a 49-year-old female patient presenting to the clinic today with complaints of a mass on her right lower posterior leg. She reports area is tender to palpation. No redness, swelling, or discharge. Denies any fever, chills, body aches. No chest pain or shortness of breath. No history of DVT. No recent history of surgery, long flights, or travel Related Data Home Medications Medication Instructions Recorded Confirmed cholecalciferol (vitamin D3) 125 5,000 unit PO WEEKLY 04/15/19 05/03/24 mcg (5,000 unit) capsule nmezuqqw-mac-hrgg-FA-Ca carb-vit K 1 tablet PO DAILY 04/15/19 05/03/24 18 mg iron-400 mcg-500 mg tablet (One-A-Day Womens Formula) norgestimate 0.25 mg-ethinyl 1 tablet PO DAILY 03/17/21 05/03/24 estradiol 35 mcg tablet (Aby) Allergies Allergy/AdvReac Type Severity Reaction Status Date / Time No Known Allergies Allergy Verified 05/03/24 17:57 Review of Systems Review of Systems: Pertinent positives per HPI. Patient denies any fever, chills, rash, headache, visual changes, dizziness, cough, shortness of breath, chest pain, palpitations, nausea, vomiting, diarrhea, constipation, abdominal pain, or any urinary issues. [facility] Past Medical History Medical History Clostridium difficile colitis (04/07/19) Colon cancer screening Endometriosis History of vitamin D deficiency Multiple allergies Osteoarthritis Osteoarthritis of left knee Trochanteric bursitis of both hips Surgical History Surgical History History of hysteroscopy History of laparoscopy History of toe surgery Family History Family History Sibling Patient's brother is in good health Mother Hypertension Family history of arthritis Other Cerebrovascular accident Social History Social History Smoking status: Never smoker Second hand tobacco smoke exposure: No Alcohol intake: current Alcohol use details: rarely Substance use: never Substance use type: does not use Do You Feel Safe in your Home?: Yes Lack of Transportation: No Lack of Food: Never True Current Housing: I Have Housing Concerned About Future Housing: No Difficulty Paying Gas/Electric Bills: No Difficulty Paying for Meds: No Currently Unemployed: No Education: Associate Degree Difficulty w/ Childcare or Family Care: No Living arrangements: with family Spiritual care concerns: No Comments At the time of my signature, I reviewed and agree with the nursing past medical, surgical, social, and family history. There is no relevant family history pertinent to the patient complaint. Exam Narrative: General: Well-developed, well nourished, in no apparent distress Head: Normocephalic, atraumatic. Cardio: Regular rate and rhythm, s1 and s2 normal, no murmur appreciated. Resp: Clear to auscultation bilaterally, no rhonchi, rales, wheezing or rubs. Integumentary: [place], warm, and dry, patient has a firm skin/subcutaneous mass measuring 1.5 x 1 cm to the right lower posterior leg, area is tender to palpation, no erythema, redness, swelling, or pitting edema noted Course Course Emergency Course: Portions of this record may have been created with voice recognition software. Level of Care: Express Care Visit Vital Signs Vital signs: Vital Signs Temperature 36.4 C 05/03/24 17:58 Pulse Rate 78 05/03/24 17:58 Respiratory Rate 16 05/03/24 17:58 Blood Pressure 119/76 05/03/24 17:58 Pulse Oximetry 100 05/03/24 17:58 Temperature 36.4 C 05/03/24 17:58 Pulse Rate 78 05/03/24 17:58 Respiratory Rate 16 05/03/24 17:58 Blood Pressure 119/76 05/03/24 17:58 Pulse Oximetry 100 05/03/24 17:58 Vital signs reviewed MDM - Skin/Abscess/Foreign Bdy MDM Narrative Medical decision making narrative: At the time of visit patient is resting comfortably on the exam table. Patient appears to be nontoxic. Plan: I suspect patient has a firm mass to the skin/subcutaneous tissue to the right posterior lower leg. Recommend following up with PCP and having ultrasound completed to determine etiology-best treatment option. Recommend going to the ER if symptoms worsen. Supportive measures were discussed with the patient and they voiced understanding discharge instructions and agrees to treatment plan. Return precautions reviewed Differential Diagnosis Differential diagnosis: Likely abscess of skin or subcutaneous tissue, cellulitis and other (Lipoma, cyst, DVT) Discharge Plan Discharge Clinical Impression: Subcutaneous mass of right lower leg Patient Disposition: Home, Self-Care Condition: Stable Instructions: Antibiotic Form, Soft Tissue Mass (ED) Additional Instructions: No concern for blood clot or skin infection in the clinic today Recommend follow-up with PCP on Monday to having ultrasound ordered to determine the type of subcutaneous mass If area becomes red, swollen, increase in pain, starts to drain purulent discharge, or streaking recommend going to the emergency room for further evaluation Follow-up with your primary care doctor as discussed Prescriptions: No Action norgestimate-ethinyl estradiol [Aby] 0.25-35 mg-mcg tablet 1 tablet PO DAILY One-A-Day Womens Formula 18 mg iron-400 mcg-500 mg tablet 1 tablet PO DAILY cholecalciferol (vitamin D3) 5,000 unit capsule 5,000 unit PO WEEKLY Rx Instructions: on Sundays Follow-up/Referrals: Abhishek Harper APRN [Primary Care Provider] - Time of Disposition: 18:07 Quality NIHSS Nursing Documentation ED NIHSS nursing documentation: reviewed/agree
[2024-05-03 17:58] VITALS: BP 119/76; PULSE 78; RESP 16; TEMP 36.4; O2SAT 100
== END 2024-05-03 18:12 | disposition home or self-care (01) ==
PROVIDERS: Emergency Provider Nurse Practitioner Family; PCP Nurse Practitioner
DX: R22.41 Localized swelling, mass and lump, right lower limb (principal)
CPT/HCPCS: 99211; G0463

== ENCOUNTER 2024-05-08 11:18 | Outpatient (CLI) | payer OTHER, SELFPAY ==
--- NOTE | ~2024-05-08 | US_ITS ---
EXAMINATION: US soft tissue LE RT DATE: 05/08/2024 11:39 INDICATION: Localized swelling, mass or lump at the posterior distal right calf TECHNIQUE: Multiple grayscale and Doppler ultrasound images of the region of concern at the posterior distal right calf were obtained. COMPARISON: None FINDINGS/IMPRESSION: There is a thrombosed serpiginous varicose vein measuring up to 3 mm in maximal diameter in the super ficial subcutaneous tissues at the region of concern. No other abnormal masses or fluid collections i dentified. Reviewed, dictated and finalized at location A. OPE TECHNOLOGIST
== END 2024-05-08 11:19 | disposition home or self-care (01) ==
LOC: GOSHIMG 11:19
PROVIDERS: PCP Nurse Practitioner; Visit Provider Nurse Practitioner
DX: R22.41 Localized swelling, mass and lump, right lower limb (principal)
CPT/HCPCS: 76882

== ENCOUNTER 2024-07-04 09:26 | Outpatient (CLI) | payer OTHER, SELFPAY ==
--- NOTE | ~2024-07-04 | MM_ITS ---
EXAMINATION: MM screening maría elena BI w alyson HISTORY: Screening TECHNIQUE: Craniocaudal and mediolateral oblique 3-D tomosynthesis images were obtained and synthetic 2-D images were generated. CAD analysis was submitted and interpreted. COMPARISON: Comparison to multiple prior studies sequentially, with oldest reviewed study dated 01/2019. BREAST PARENCHYMAL COMPOSITION: Dense: The breasts are heterogeneously dense, which may obscure small masses FINDINGS: There is no evidence of suspicious mass, calcification, or architectural distortion to sugg est malignancy in either breast. There has been no suspicious interval change. IMPRESSION: 1. No mammographic evidence of malignancy. 2. Recommend routine screening mammography in one year. BI-RADS Category 1: Negative Reviewed, dictated and finalized at location A. NERATOR OPERATOR
== END 2024-07-04 09:27 | disposition home or self-care (01) ==
LOC: ANHIMG 09:26
PROVIDERS: PCP Nurse Practitioner; Visit Provider Obstetrics & Gynecology Gynecology
DX: Z12.31 Encounter for screening mammogram for malignant neoplasm of breast (principal)
CPT/HCPCS: 77063; 77067

== ENCOUNTER 2025-04-22 08:04 | Outpatient (CLI) | payer OTHER, SELFPAY ==
--- NOTE | ~2025-04-22 | XR_ITS ---
Examination: XR knee LT 3V Clinical History: M25.562 - Pain in left knee Comparison: 03/19/2024 x-rays left knee Technique: 3 views left knee Findings/impression: No acute findings- 1. No fracture, dislocation, or effusion left knee. 2. Minimal tricompartmental marginal osteophytes. Reviewed, dictated and finalized at location R. K POINTER
== END 2025-04-22 08:05 | disposition home or self-care (01) ==
PROVIDERS: PCP Internal Medicine; Visit Provider Internal Medicine
DX: M25.562 Pain in left knee (principal)
CPT/HCPCS: 73562

== ENCOUNTER 2025-05-24 05:17 | Emergency (ER) | payer OTHER, SELFPAY ==
[2025-05-24] VITALS (11 sets, daily range): BP systolic 98–128; BP diastolic 54–75; PULSE 82–101; RESP 14–23; TEMP 36.8–37.5; O2SAT 96–100
--- NOTE | 2025-05-24 05:53 | ED.FEVER ---
HPI - Fever General Chief Complaint: Fever Stated Complaint: flu like sx Time Seen by Provider: 05/24/25 05:31 Related Data Home Medications ?Medication ?Instructions ?Recorded ?Confirmed ?Last Taken ?Type cholecalciferol (vitamin D3) 125 5,000 unit PO WEEKLY 04/15/19 04/10/25 Unknown History mcg (5,000 unit) capsule cvbnhvyg-lhi-adlf-FA-Ca carb-vit K 1 tablet PO DAILY 04/15/19 04/10/25 Unknown History 18 mg iron-400 mcg-500 mg tablet (One-A-Day Womens Formula) norgestimate 0.25 mg-ethinyl 1 tablet PO DAILY 03/17/21 04/10/25 Unknown History estradiol 0.035 mg tablet (Aby) Allergies Allergy/AdvReac Type Severity Reaction Status Date / Time No Known Allergies Allergy Verified 05/24/25 05:18 [facility] Past Medical History Medical History Clostridium difficile colitis (04/07/19) Colon cancer screening Endometriosis History of vitamin D deficiency Multiple allergies Osteoarthritis Osteoarthritis of left knee Trochanteric bursitis of both hips Surgical History Surgical History History of hysteroscopy History of laparoscopy History of toe surgery Family History Family History Sibling Patient's brother is in good health Mother Hypertension Family history of arthritis Other Cerebrovascular accident Social History Social History (Updated 04/10/25 @ 07:32 by Rekha Rosenberg [facility]) Smoking status: Never smoker Second hand tobacco smoke exposure: No Alcohol intake: current Alcohol use details: rarely Substance use: never Substance use type: does not use Lack of Transportation: No Lack of Food: Never True Current Housing: I Have Housing Concerned About Future Housing: No Difficulty Paying Gas/Electric Bills: No Difficulty Paying for Meds: No Currently Unemployed: No Education: Associate Degree Difficulty w/ Childcare or Family Care: No Living arrangements: with family Spiritual care concerns: No Course Vital Signs Vital signs: Vital Signs Pulse Rate 91 05/24/25 05:28 Respiratory Rate 16 05/24/25 05:28 Blood Pressure 128/75 05/24/25 05:28 Pulse Oximetry 99 05/24/25 05:28 Oxygen Delivery Room Air 05/24/25 05:28 Temperature 99.5 F 05/24/25 05:40 Pulse Rate 82 05/24/25 07:31 Respiratory Rate 20 05/24/25 07:31 Blood Pressure 109/69 05/24/25 07:31 Pulse Oximetry 98 05/24/25 07:31 Oxygen Delivery Room Air 05/24/25 05:28 MDM MDM Narrative Medical decision making narrative: 50-year-old female Presenting for flu-like symptoms. On initial evaluation patient was in no acute distress afebrile, hemodynamic stable. 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 I personally reviewed the patient's lab result. Notable lab findings: COVID/flu/RSV negative, strep negative Patient was given Tylenol with some mild improvement in her symptoms. She likely has a viral syndrome causing her symptoms. She was educated on Tylenol and ibuprofen use. She is also counseled on sore throat sprays. She was advised follow-up with her PCP in the next week for re-evaluation. Patient was agreeable to this plan. Given strict return precautions. Differential Diagnosis Differential Diagnosis: Viral syndrome, strep pharyngitis, viral pharyngitis, sinusitis, laryngitis, WASTE WATER OPERATOR, RPA Lab Data Labs: Lab Results 05/24/25 Range/Units 06:07 Influenza A (RT-PCR) Negative (Negative) Influenza B (RT-PCR) Negative (Negative) RSV (RT-PCR) Negative (Negative) SARS-CoV-2 RNA (RT-PCR) Negative (Negative) Group A Strep (PCR) Not detected (Negative) Discharge Plan Discharge Clinical Impression: Acute viral syndrome Patient Disposition: Home Condition: Stable Instructions: Antibiotic Form, Viral Syndrome (ED) Additional Instructions: He tests negative for COVID/flu/RSV and strep. You likely have another virus causing your symptoms. You may take Tylenol and ibuprofen for your pain. You may also try sore throat sprays. Follow up with her PCP in the next week for re-evaluation. Return the ED for any new or worsening symptoms. For pain, discomfort or temperature greater than or equal to 100.8 ?F please alternate the following 2 medications as needed. First medication- acetaminophen/Tylenol- 1000mg every 6-8 hours as needed for above indications. Second medication- ibuprofen/Motrin-600mg every 6-8 hours as needed for above indication. Patient Language: [place] Prescriptions: No Action diclofenac sodium [Solaraze] 3 % gel 1 applic topical BID Qty: 100 1RF norgestimate-ethinyl estradiol [Aby] 0.25-35 mg-mcg tablet 1 tablet PO DAILY One-A-Day Womens Formula 18 mg iron-400 mcg-500 mg tablet 1 tablet PO DAILY cholecalciferol (vitamin D3) 5,000 unit capsule 5,000 unit PO WEEKLY Rx Instructions: on Sundays Follow-up/Referrals: Ozzy Brewer DO [Primary Care Provider, Internal Medicine]
--- OUTSIDE RECORDS SUMMARY | 2025-05-24 06:05 | XMS_ITS | Clinical Summary ---
Author Organization [facility] [employer] Address [address] [place] [address] Care Team Providers Care B2B Sales Manager Name Role Phone Scar Pennington PA-C Primary Care Provide r Source Comments [facility] [employer],non-owned Affiliates and Associated Physician Practices is amultiple site organization consisting of ambulatory clinics and hospital sitesin [place], [place], [place] and [place]. This disclosure is being madepursuant to the Care Everywhere program and may not contain all information available regarding this patient. Last updated 18.[facility] [employer] Allergies Active Allergy Reactions Criticality Noted Date Comments Bee Venom Swelling High 09/04/2015 Medications * Be aware that medications may not be up to date on this document. Alwaysverify current medications with the patient. vitamin D, ergocalciferol, (DRISDOL) 1.25 MG (25020 UT) capsule Take 50,000 Units by mouth every 7 days 05/17/2020 Active Multiple Vitamin (MULTI-VITAMIN) TABS Take 1 tablet by mouth once daily Active Ascorbic Acid 1000 MG Take 1,000 mg by mouth once daily Active norgestimate-et hinyl estradiol (ORTHO-CYCLEN; MONONESSA; PREVIFEM; SPRINTEC) 0.25-35 MG-MCG tablet Take 1 tablet by mouth once daily Active spironolactone (ALDACTONE) 100 MG tabletIndicatio ns:Acne vulgaris,Hirsut ism Take 2 (two) tablets by mouth once daily 60 tablet 11 11/24/2021 Active Active Problems Problem Noted Date Diagnosed Date Acne vulgaris 11/30/2020 Assessment & Plan (11/30/2020 10:41 AM CDT): - Flares on lower face, improved from prior w/ less flares - DDx includes likely hormonal acne - Reviewed etiology, prognosis, and treatment options for acne - Recommend: Cont OTC BPO wash Cont spironolactone 100 mg daily Cont OCPs - Reviewed side effects of spironolactone including lowering BP, dizziness, headaches, effects on potassium, and defects. Hirsutism 11/30/2020 Assessment & Plan (11/30/2020 10:42 AM CDT): - Bilateral chin, uncontrolled - Reviewed etiology, prognosis, and treatment options including adding finasteride vs. Laser hair removal vs. Vaniqa. Pt not interested in orals - Recommend: - Printed prescription for Vaniqa + using [employer] coupon for best gomez - Consider referral to [facility] for laser hair removal consultation - Cont shaving area if desired Calculus of kidney 09/11/2015 Overview (11/30/2020): Pt noted to have left renal calculus 3x6mm in dimension on CT scan for other lower abdominal pain eval. She has had 3 UTI episodes over the past year. Cystitis with hematuria 09/11/2015 Cystocele, midline 09/11/2015 Dextroscoliosis 09/11/2015 Overview (11/30/2020): Seen on retrograde exam incidentally. Gross hematuria 09/11/2015 Overview (11/30/2020): Pt reportedly had hemorrhagic cystitis this year resolved on antibiotic Urethral stenosis 09/11/2015 Immunizations Immunization Administration Dates Next Due FLU VACCINE TRI IIV3 SPLIT PF IM (FLUVIRIN) 06/13 Family History Medical History Relation Name Comments None Known Brother None Known Father None Known Maternal Aunt None Known Maternal Grandfather None Known Maternal Grandmother None Known Maternal Uncle None Known Mother None Known Other None Known Paternal Aunt None Known Paternal Grandfather None Known Paternal Grandmother None Known Paternal Uncle None Known Sister Asthma Neg Hx CVA Neg Hx Cancer - Breast Neg Hx Cancer - Other Neg Hx Cancer - Skin, Melanoma Neg Hx Cancer - Skin, Non Melanoma Neg Hx Eczema Neg Hx Hemophilia Neg Hx Psoriasis Neg Hx Relation Name Status Comments Brother Father Maternal Aunt Maternal Grandfather Maternal Grandmother Maternal Uncle Mother Other Paternal Aunt Paternal Grandfather Paternal Grandmother Paternal Uncle Sister Social History Tobacco Use Types Packs/Day Years Used Date Smoking Tobacco: Never Smokeless Tobacco: Never Alcohol Use Standard Drinks/Week Comments Not Currently 0 (1 standard drink = 0.6 oz pur e alcohol) Comments Unknown Sex and Gender Information Value Date Recorded Sex Assigned at Female 07/19/2022 4:57 PM TRACK SURFACING MACHINE OPERATOR Legal Sex Female 3:50 PM TRACK SURFACING MACHINE OPERATOR Gender Identity Female 07/19/2022 4:57 PM TRACK SURFACING MACHINE OPERATOR Sexual Orientation Straight 07/19/2022 4: 57 PM TRACK SURFACING MACHINE OPERATOR Last Filed Vital Signs Vital Sign Reading Time Taken Comments Blood Pressure 121/83 07/22/2021 9:20 AM TRACK SURFACING MACHINE OPERATOR Pulse 93 07/22/2021 9:20 AM TRACK SURFACING MACHINE OPERATOR Temperature 36.6 C (97.9 F) 07/22/2021 9:20 AM TRACK SURFACING MACHINE OPERATOR Respiratory Rate - - Oxygen Saturation 100% 07/22/2021 9:20 AM TRACK SURFACING MACHINE OPERATOR Inhaled Oxygen Concentration - - Weight 83.5 kg (184 lb) 07/22/2021 9:20 AM TRACK SURFACING MACHINE OPERATOR Height 160 cm (5' 3) 07/22/2021 9:20 AM TRACK SURFACING MACHINE OPERATOR Body Mass Index 32.59 07/22/2021 9:20 AM TRACK SURFACING MACHINE OPERATOR Plan of Treatment Health Maintenance Due Date Last Done Comments COLOGUARD (AGES 45-75) - COL ON CA SCREENING 1976 COLON MONITORING 1976 COLONOSCOPY - COLON CA SCREENING 1976 CT COLONOGRAPHY - COLON CA SCREENING 1976 Colorectal Cancer Screening 1976 FIT - COLON CA SCREENING 1976 FLEX SIG - COLON CA SCREENING 1976 LIPID TESTING 1976 MAMMOGRAM 1976 HIV SCREENING 01/15/1991 HEPATITIS C SCREENING 01/11/1994 DTAP/TDAP/TD VACCINES (1 - Tdap) 01/15/1995 HEPATITIS B VACCINE (1 of 3 - 19+ 3-dose series) 01/15/1995 PAP SMEAR 01/15/1997 SCREENING FOR DIABETES 07/22/2021 DEPRESSION SCREENING 06/12/2024 COVID-19 VACCINE (1 - 2024-2 6 season) 2025 INFLUENZA VACCINE (#1) 2025 07/10/2008 ZOSTER VACCINE (1 of 2) 01/15/2026 HIB VACCINE Aged Out No longer eligi ble based on patient's age to complete this topic HPV VACCINE Aged Out No longer eligi ble based on patient's age to complete this topic MENINGOCOCCAL (Group B) VACC INE SHARED DECISION-MAKING Aged Out No longer eligibl e based on patient's age to complete this topic MENINGOCOCCAL GROUPS A/C/Y/W VACCINE Aged Out No longer eligible b ased on patient's age to complete this topic [place] [facility] [place] Address: [facility] [address] [place] [address] [facility] [address] [place] [address] [facility] [place] Address: [facility] [id number] [place] [address] Care Teams B2B Sales Manager Relationship Specialty Start Date End Date Scar Pennington PA-C [address] [place], [place] [id number] PCP - General 11/30/20
--- OUTSIDE RECORDS SUMMARY | 2025-05-24 06:05 | XMS_ITS | Clinical Summary ---
Author Organization [facility] Address [address] [place] [id number] Care Team Providers Care Automotive Quality Engineer Name Role Phone Scar Pennington Primary Care Provider Allergies Active Allergy Reactions Criticality Noted Date Comments Venom-Honey Bee Swelling High 09/04/2015 Medications ascorbic acid (VITAMIN C) 1,000 mg tablet Take by mouth. Active B-complex with vitamin C tabletIndicatio ns:Vitamin Deficiency Prevention Take by mouth. Active ergocalciferol (VITAMIN D) 50,000 unit capsule Take by mouth once a week. 3 11/10/2017 Active omega-3 fatty acids (LOVAZA) 1 gram capsule Take 1 capsule (1,000 mg total) by mouth Active multivitamin tabletIndicatio ns:Vitamin Deficiency Prevention Take by mouth. Active holly, Zingiber officinalis, 250 mg capsule Take by mouth. Active norgestimate-et hinyl estradioL (ORTHO-CYCLEN) 0.25-35 mg-mcg per tablet Take 1 tablet by mouth daily Active Active Problems Problem Noted Date Diagnosed Date Nephrolithiasis 12/07/2018 Surgical History Surgery Date Site/Laterality Comments FOOT SURGERY Foot Surgery - (Added by TW Conv) [place] DELIVERY ONLY Section - (Added by TW Conv) URETHRAL DILATION Dilation Of Female Urethra - September 2015 at outside facility (Added by TW Conv) Medical History Medical History Date Comments Personal history of urinary infection History of recurrent urinary tract infection - (Added by TW Conv) Personal history of other di seases of the digestive system History of constipation - (A dded by TW Conv) Personal history of other di seases of the female genital tract History of endometriosis - ( Added by MATT Conv) Family History Medical History Relation Name Comments Hypertension Mother Family history of hypertension - (Added by MATT Conv) Sickle cell trait Other Family his tory of sickle cell trait - (Added by MATT Conv) Relation Name Status Comments Mother Other Social History Tobacco Use Types Packs/Day Years Used Date Smoking Tobacco: Never Comments Unknown Sex and Gender Information Value Date Recorded Sex Assigned at Not on file Legal Sex Female 9:02 AM ASSOCIATE RESEARCH SCIENTIST Gender Identity Not on file Sexual Orientation Not on file Last Filed Vital Signs Vital Sign Reading Time Taken Comments Blood Pressure 127/84 07/03/2024 8:36 AM ASSOCIATE RESEARCH SCIENTIST Pulse 90 07/03/2024 8:36 AM ASSOCIATE RESEARCH SCIENTIST Temperature - - Respiratory Rate - - Oxygen Saturation 99% 07/03/2024 8:36 AM ASSOCIATE RESEARCH SCIENTIST Inhaled Oxygen Concentration - - Weight 80.3 kg (177 lb) 07/03/2024 8:36 AM ASSOCIATE RESEARCH SCIENTIST Height 160 cm (5' 3) 07/03/2024 8:36 AM ASSOCIATE RESEARCH SCIENTIST Body Mass Index 31.35 07/03/2024 8:36 AM ASSOCIATE RESEARCH SCIENTIST Plan of Treatment Health Maintenance Due Date Last Done Comments Breast Cancer Screening-Mammogram 1976 Cervical Cancer Screening 1976 Colon Cancer Screening-Colonoscopy 1976 Depression Screening 1976 Hepatitis C Screening 1976 DTaP/Tdap/Td Vaccine (1 - Tdap) 01/15/1987 Hepatitis B Screening 01/15/1994 Regular Well Visit/Exam 18-64 01/15/1994 Influenza Vaccine (#1) 2025 07/10/2008 Pneumococcal vaccine <65 Aged Out No longer eligible based on patient's age to complete this topic [place] [address] [facility] OPEN ACCESS [facility] [id number] [place] [address] [facility] [address] Care Teams Automotive Quality Engineer Relationship Specialty Start Date End Date Scar Pennington PA [address] [facility] [address] [place] [address] PCP - General Physician Transmitter Chief 12/01/17
[2025-05-24] MEDS: ACETAMINOPHEN 500 MG TABLET 1000 MG PO (06:26)
[2025-05-24 06:40] LABS: Strep Group A RT-PCR NOT DETECTED (Negative)
[2025-05-24 06:52] LABS: Influenza A QL RT-PCR Negative (Negative); Influenza B QL RT-PCR Negative (Negative); RSV RNA, RT-PCR Negative (Negative); SARS-CoV-2 RNA PCR Negative (Negative)
== END 2025-05-24 08:18 | disposition home or self-care (01) ==
PROVIDERS: Emergency Provider Student in an Organized Health Care Education/Training Program; PCP Internal Medicine
DX: B34.9 Viral infection, unspecified (principal); Z20.822 Contact with and (suspected) exposure to COVID-19; E55.9 Vitamin D deficiency, unspecified; N80.9 Endometriosis, unspecified; M17.12 Unilateral primary osteoarthritis, left knee
CPT/HCPCS: 87637; 87651; 99283; A9270